=== PATIENT | male | born 1970 | race Caucasian/White ===

== ENCOUNTER → 2020-05-07 | Outpatient (CLI) | payer MEDICAID ==
[~2020-05-07] MED LIST: CAR3125T PO; FURO1TAB33 PO; GLIP-218 PO; LEVE500T32 PO; LISI2.5T47 PO; PRAV20TA3 PO
[2020-05-07 11:00] VITALS: BP 147/78
--- NOTE | 2020-05-07 11:00 | NUR ---
PATIENT INTO CLINIC FOR SCHEDULED PREOP APPOINTMENT, AAOX4, AMBULATORY, BREATHING EVEN AND UNLABORED.
[2020-05-07 11:24] VITALS: BP 140/78
--- NOTE | 2020-05-07 11:24 | NUR ---
Pre-Op Discharge Summary: See e-MAR for any medications given for this visit. Pre-op orders received and carried out per MD of LABS and chest xrays, EKG already completed during office visit on 04/21/20. Patient given a copy of EKG with instructions to go to [facility] out patient for further follow up care.
[2020-05-07 12:14] LABS: Basophils # (auto) 0.1 10 ^3/uL (0-0.2); Basophils % (auto) 0.8 % (0.0-2.0); Eosinophils # (auto) 0.2 10 ^3/uL (0-0.8); Eosinophils % (auto) 2.4 % (0.0-7.0); Hematocrit 43.1 % (41.0-53.0); Hemoglobin 14.4 g/dL (13.5-17.5); Lymphocytes % (auto) 31.2 % (10.0-50.0); Mean Corpuscular Hemoglobin 28.9 pg (28.0-32.0); Mean Corpuscular Hgb Conc. 33.5 g/dL (32.0-36.0); Mean Corpuscular Volume 86.2 fL (80.0-100.0); Monocytes # (auto) 0.4 10 ^3/uL (0-1.3); Monocytes % (auto) 6.9 % (0.0-12.0); Neutrophils # (auto) 3.8 10 ^3/uL (1.6-8.6); Neutrophils % (auto) 58.7 % (37.0-80.0); Nucleated Red Blood Cells % 0.1 %; Platelet Count (auto) 282 10^3/uL (140-450); Red Cell Distribution Width 13.7 % (11.8-14.3); White Blood Cell 6.5 10^3/uL (4.4-10.8)
[2020-05-07 12:19] LABS: INR 1.03 (0.9-1.15); Partial Thromboplastin Time 25.1 sec (23.64-32.05)
[2020-05-07 13:18] LABS: Potassium 4.2 mmol/L (3.5-5.1)
[2020-05-07 13:32] LABS: BUN/Creatinine Ratio 16.3; Calcium 8.5 mg/dL (8.5-10.1)
== END | disposition home or self-care (01) ==
LOC: Rad HDHVI 10:54
PROVIDERS: ATTEND Internal Medicine Cardiovascular Disease
DX: I51.7 Cardiomegaly (principal); Z01.818 Encounter for other preprocedural examination; Z95.810 Presence of automatic (implantable) cardiac defibrillator
CPT/HCPCS: 36415; 71046; 80048; 85025; 85610; 85730; G0463

== ENCOUNTER 2020-05-13 06:57 | Day surgery (SDC) | payer MEDICAID, OTHER ==
[~2020-05-13 06:57] MED LIST changes: +LEVE500T22 PO; -LEVE500T32 PO
[2020-05-13] MEDS ORDERED: LIDOCAINE 2%HCL (LOCAL ANESTH.) INJ 20ML MDV ONE (08:31)
[2020-05-13] MEDS ORDERED: ceFAZolin 1GM/50ML 50 ML IV ONE (08:49)
[2020-05-13] MEDS ORDERED: fentaNYL CITRATE 100 MCG/2 ML VL ONE (09:06)
[2020-05-13] MEDS ORDERED: MIDAZOLAM HCL 1MG/1ML-2 ML VIAL ONE (09:07)
[2020-05-13] MEDS ORDERED: ceFAZolin 1GM VL ONE (09:10)
[2020-05-13] MEDS ORDERED: ACETAMINOPHEN 325 MG TAB PO PRN (10:00)
[2020-05-13] MEDS ORDERED: HYDROcodone-ACET 5/325MG TAB PO PRN (10:00)
== END 2020-05-13 12:41 | disposition home or self-care (01) ==
LOC: CATH 06:57
PROVIDERS: ATTEND Internal Medicine Cardiovascular Disease
DX: I42.8 Other cardiomyopathies (principal); I10 Essential (primary) hypertension; I49.8 Other specified cardiac arrhythmias; E11.9 Type 2 diabetes mellitus without complications; Z79.899 Other long term (current) drug therapy; Z79.84 Long term (current) use of oral hypoglycemic drugs; Z87.891 Personal history of nicotine dependence; Z11.59 Encounter for screening for other viral diseases
CPT/HCPCS: 33264; 87635; C1882; J0690; J2250; J3010; J7030; 99152; 99153

== ENCOUNTER → 2020-11-08 | Outpatient (CLI) | payer MEDICAID ==
[~2020-11-08] MED LIST changes: -LEVE500T22 PO; +LEVE500T32 PO
== END | disposition home or self-care (01) ==
LOC: Rad HDHVI 09:19
PROVIDERS: ATTEND Internal Medicine
DX: I08.1 Rheumatic disorders of both mitral and tricuspid valves (principal); I50.43 Acute on chronic combined systolic (congestive) and diastolic (congestive) heart failure; Z95.810 Presence of automatic (implantable) cardiac defibrillator
CPT/HCPCS: 93306